=== PATIENT | male | born 1965 | race Caucasian/White ===

== ENCOUNTER 2019-10-13 16:21 | Inpatient (IN) | payer SELFPAY ==
[2019-10-13] VITALS (8 sets, daily range): BP systolic 133–186; BP diastolic 76–100
[~2019-10-13] VITALS: Ht 175 cm; Wt 48.7 kg
[2019-10-13] MEDS ORDERED: ASPIRIN 81 MG CHEW (CHILDREN'S ASA) PO ONE (16:30)
[2019-10-13 16:52] LABS: BASOPHILS % (AUTO) 0 % (0-10); EOSINOPHILS % (AUTO) 0 % (0-10); HEMATOCRIT 46 % (40-54); LYMPHOCYTES # (AUTO) 2.2 X 10^3 (1.0-4.0); LYMPHOCYTES % (AUTO) 23 % (12-44); MEAN CORPUSCULAR HEMOGLOBIN 34 PG (25-34); MEAN CORPUSCULAR HGB CONC 37 G/DL (32-36); MEAN CORPUSCULAR VOLUME 93 FL (80-99); MEAN PLATELET VOLUME 9.4 FL (7.4-10.4); MONOCYTES # (AUTO) 1.4 X 10^3 (0.0-1.0); MONOCYTES % (AUTO) 15 % (0-12); NEUTROPHILS # (AUTO) 6.1 X 10^3 (1.8-7.8); NEUTROPHILS % (AUTO) 63 % (42-75); PLATELET COUNT 355 10^3/uL (130-400); RED CELL DISTRIBUTION WIDTH 13.1 % (10.0-14.5); WHITE BLOOD COUNT 9.7 10^3/uL (4.3-11.0)
[2019-10-13] MEDS ORDERED: NS IV 1000 ML 1,000 ML IV SCH (17:00)
[2019-10-13] MEDS ORDERED: cloNIDine 0.2 MG (CATAPRES) TAB PO ONE (17:00)
[2019-10-13 17:03] LABS: PROTHROMBIN TIME PATIENT 13.9 SEC (12.2-14.7)
[2019-10-13 17:06] LABS: CHLORIDE 102 MMOL/L (98-107); POTASSIUM 3.7 MMOL/L (3.6-5.0); SODIUM 136 MMOL/L (135-145)
[2019-10-13 17:08] LABS: CALCIUM 10.2 MG/DL (8.5-10.1)
[2019-10-13 17:09] LABS: GLUCOSE 135 MG/DL (70-105)
[2019-10-13 17:10] LABS: BILIRUBIN,TOTAL 0.6 MG/DL (0.1-1.0); CARBON DIOXIDE 22 MMOL/L (21-32)
[2019-10-13 17:12] LABS: ALKALINE PHOSPHATASE 54 U/L (40-136); CREATININE SERUM 0.91 MG/DL (0.60-1.30); GFR ESTIMATED > 60
[2019-10-13 17:13] LABS: BUN/CREATININE RATIO 8; FIBRIN DEGRADATION PRODUCTS 0.4 UG/ML (0.00-0.49)
[2019-10-13 17:15] LABS: ALANINE AMINOTRANSFERASE 19 U/L (0-55); MAGNESIUM 2.2 MG/DL (1.6-2.4)
--- NOTE | 2019-10-13 17:15 | NUR ---
REPORT GIVEN TO CHRIS.
--- NOTE | 2019-10-13 17:43 | Diagnostic Imaging Report ---
EXAMINATION: Chest 1 view. HISTORY: Chest pain. COMPARISON: None available. FINDINGS: Lungs are hyperinflated. There is scarring in the apices. Heart size is normal. No pleural effusion or pneumothorax. No edema or pneumonia. IMPRESSION: Hyperinflated lungs with scarring in the apices but no edema or pneumonia. Dictated by: Dictated on workstation # [id number]
[2019-10-13 18:06] LABS: BILIRUBIN,URINE NEGATIVE (NEGATIVE); CLARITY,URINE CLEAR; COLOR,URINE YELLOW; GLUCOSE, URINE (UA) NEGATIVE (NEGATIVE); KETONES,URINE NEGATIVE (NEGATIVE); LEUKOCYTE ESTERASE ,URINE NEGATIVE (NEGATIVE); NITRITE,URINE NEGATIVE (NEGATIVE); PH,URINE 6.5 (5-9); PROTEIN,URINE NEGATIVE (NEGATIVE)
[2019-10-13 18:12] LABS: BACTERIA,URINE TRACE /HPF; RBC,URINE RARE /HPF; SQUAMOUS EPITHELIAL CELL,UR RARE /HPF
[2019-10-13] MEDS ORDERED: HYDROCHLOROTHIAZIDE 12.5 MG (HCTZ) CAP PO ONE (18:30)
[2019-10-13] MEDS ORDERED: lisINopril 10 MG (PRINIVIL) TABLET PO ONE (18:30)
--- NOTE | 2019-10-13 18:38 | ED Chest Pain ---
General Chief Complaint: Chest Pain Stated Complaint: SOA,CP Nursing Triage Note: ARRIVED VIA AMB TO [facility] WITH COMPLAINTS OF SOA SINCE YESTERDAY ALONG WITH FEVER. Nursing Sepsis Screen: Possible Severe Sepsis Risk Source: patient Exam Limitations: no limitations History of Present Illness Date Seen by Provider: Oct 13, 2019 Time Seen by Provider: 16:27 Initial Comments 54-year-old male who presents to the emergency room with complaints of shortness of air and chest pain that started yesterday. He describes his chest pain as a mild ache that comes from time to time. He reports possible fever because he has hot and cold at times. He reports that he has had exposure to COVID 2 weeks ago. He denies taking any medications for his symptoms. He is alert and oriented on arrival to the emergency room. He denies any nausea, dizziness, lightheadedness, vomiting, diarrhea. Timing/Duration: 1-2 days Severity/Quality: mild Location: substernal Radiation: no radiation Prior CP/Workup: no prior chest pain ASA po TOWBOAT CAPTAIN: No NTG SL TOWBOAT CAPTAIN: No Associated Symptoms: shortness of breath Allergies and Home Medications Allergies Coded Allergies: menthol (Verified Allergy, Unknown, 10/13/19) Patient Home Medication List Home Medication List Reviewed: Yes Review of Systems Review of Systems Constitutional: see HPI, chills, fever Respiratory: See HPI, Shortness of Air Cardiovascular: See HPI, Chest Pain All Other Systems Reviewed Negative Unless Noted: Yes Past Tln[place]ah-Nrmjjg-Zwbqgf Hx Past Med/Social Hx: Reviewed Nursing Past Med/Soc Hx Patient Social History Recent Foreign Travel: No Contact w/Someone Who Travel: No Recent Infectious Disease Expo: No Recent Hopitalizations: No Physical Abuse: No Sexual Abuse: No Mistreated: No Fear: No Seasonal Allergies Seasonal Allergies: No Past Medical History Surgeries: Yes (SPLEENECTOMY) Respiratory: Yes COPD Cardiac: No Neurological: No Genitourinary: No Gastrointestinal: No Musculoskeletal: No Endocrine: No Cancer: No Psychosocial: No Blood Disorders: Yes Family Medical History Reviewed Nursing Family Hx Physical Exam Vital Signs Vital Signs - First Documented 10/13/19 16:25 Temp 36.6 Pulse 120 Resp 16 B/P (MAP) 207/131 (156) Pulse Ox 97 O2 Delivery Room Air Capillary Refill : Less Than 3 Seconds Height, Weight, BMI Height: '" Weight: lbs. oz. kg; 17.00 BMI Method: General Appearance: No Apparent Distress, WD/WN Respiratory: Chest Non Tender, Lungs Clear, Normal Breath Sounds, No Accessory Muscle Use, No Respiratory Distress Cardiovascular: No Edema, No Gallop, No JVD, No Murmur, Normal Peripheral Pulses, Tachycardia Gastrointestinal: Normal Bowel Sounds, No Organomegaly, No Pulsatile Mass, Non Tender Extremity: Normal Capillary Refill Neurologic/Psychiatric: Alert, Oriented x3, Normal Mood/Affect Skin: Normal Color, Warm/Dry Focused Exam Lactate Level 10/13/19 16:50: Lactic Acid Level 1.32 Lactic Acid Level Laboratory Tests Test 10/13/19 16:50 Lactic Acid Level 1.32 MMOL/L (0.50-2.00) Progress/Results/Core Measures Results/Orders Lab Results Laboratory Tests Test 10/13/19 16:35 10/13/19 16:50 10/13/19 17:40 10/13/19 18:30 Range/Units White Blood Count 9.7 4.3-11.0 10^3/uL Red Blood Count 4.95 4.35-5.85 10^6/uL Hemoglobin 17.0 13.3-17.7 G/DL Hematocrit 46 40-54 % Mean Corpuscular Volume 93 80-99 FL Mean Corpuscular Hemoglobin 34 25-34 PG Mean Corpuscular Hemoglobin Concent 37 H 32-36 G/DL Red Cell Distribution Width 13.1 10.0-14.5 % Platelet Count 355 130-400 10^3/uL Mean Platelet Volume 9.4 7.4-10.4 FL Neutrophils (%) (Auto) 63 42-75 % Lymphocytes (%) (Auto) 23 12-44 % Monocytes (%) (Auto) 15 H 0-12 % Eosinophils (%) (Auto) 0 0-10 % Basophils (%) (Auto) 0 0-10 % Neutrophils # (Auto) 6.1 1.8-7.8 X 10^3 Lymphocytes # (Auto) 2.2 1.0-4.0 X 10^3 Monocytes # (Auto) 1.4 H 0.0-1.0 X 10^3 Eosinophils # (Auto) 0.0 0.0-0.3 10^3/uL Basophils # (Auto) 0.0 0.0-0.1 10^3/uL Prothrombin Time 13.9 12.2-14.7 SEC INR Comment 1.0 0.8-1.4 Activated Partial Thromboplast Time 33 24-35 SEC Fibrinogen 421 221-496 MG/DL D-Dimer 0.40 0.00-0.49 UG/ML Sodium Level 136 135-145 MMOL/L Potassium Level 3.7 3.6-5.0 MMOL/L Chloride Level 102 98-107 MMOL/L Carbon Dioxide Level 22 21-32 MMOL/L Anion Gap 12 5-14 MMOL/L Blood Urea Nitrogen 7 7-18 MG/DL Creatinine 0.91 0.60-1.30 MG/DL Estimat Glomerular Filtration Rate > 60 BUN/Creatinine Ratio 8 Glucose Level 135 H 70-105 MG/DL Calcium Level 10.2 H 8.5-10.1 MG/DL Corrected Calcium 8.5-10.1 MG/DL Magnesium Level 2.2 1.6-2.4 MG/DL Total Bilirubin 0.6 0.1-1.0 MG/DL Aspartate Amino Transf (AST/SGOT) 17 5-34 U/L Alanine Aminotransferase (ALT/SGPT) 19 0-55 U/L Alkaline Phosphatase 54 40-136 U/L Lactate Dehydrogenase 100 L 125-220 U/L Myoglobin 27.7 10.0-92.0 NG/ML Troponin I < 0.028 0.327 *H <0.028 NG/ML C-Reactive Protein High Sensitivity 0.10 0.00-0.50 MG/DL Total Protein 8.0 6.4-8.2 GM/DL Albumin 5.0 H 3.2-4.5 GM/DL Lactic Acid Level 1.32 0.50-2.00 MMOL/L Urine Color YELLOW Urine Clarity CLEAR Urine pH 6.5 5-9 Urine Specific Henderson <=1.005 1.016-1.022 Urine Protein NEGATIVE NEGATIVE Urine Glucose (UA) NEGATIVE NEGATIVE Urine Ketones NEGATIVE NEGATIVE Urine Nitrite NEGATIVE NEGATIVE Urine Bilirubin NEGATIVE NEGATIVE Urine Urobilinogen 0.2 < = 1.0 MG/DL Urine Leukocyte Esterase NEGATIVE NEGATIVE Urine RBC (Auto) 1+ H NEGATIVE Urine RBC RARE /HPF Urine WBC NONE /HPF Urine Squamous Epithelial Cells RARE /HPF Urine Crystals NONE /LPF Urine Bacteria TRACE /HPF Urine Casts NONE /LPF Urine Mucus NEGATIVE /LPF Urine Culture Indicated NO Test 10/13/19 19:30 Range/Units Troponin I 0.833 *H <0.028 NG/ML My Orders Orders - SCARLET SAUL Cbc With Automated Diff (10/13/19 16:27) Magnesium (10/13/19 16:) Chest 1 View, Ap/Pa Only (10/13/19 16:27) Ekg Tracing (10/13/19 16:27) Comprehensive Metabolic Panel (10/13/19 16:) Myoglobin Serum (10/13/19 16:) Protime With Inr (10/13/19 16:27) Partial Thromboplastin Time (10/13/19 16:27) O2 (10/13/19 16:27) Monitor-Rhythm Ecg Trace Only (10/13/19 16:) Lipid Panel (10/14/19 06:00) Ed Iv/Invasive Line Start (10/13/19 16:27) Blood Culture (10/13/19 16:27) Sputum Culture (10/13/19 16:27) Urinalysis (10/13/19 16:) Urine Culture (10/13/19 16:27) Vital Signs Adult Sepsis Patie Q15M (10/13/19 16:27) Remove Rings In Anticipation O (10/13/19 16:27) Lactic Acid Analyzer (10/13/19 16:27) Coronavirus Sars-Cov-2 So 2018 (10/13/19 16:27) Fibrin Degradation Products (10/13/19 16:27) Aspirin Chewable Tablet (Baby Aspirin Ch (10/13/19 16:30) Vital Signs: Every 4 Hours (Or (10/13/19 16:33) Ferritin (10/13/19 16:33) Fibrinogen (10/13/19 16:33) Ns Iv 1000 Ml (Sodium Chloride 0.9%) (10/13/19 17:00) Clonidine Tablet (Catapres Tablet) (10/13/19 17:00) Hs C Reactive Protein (10/13/19 16:35) LDH (10/13/19 16:35) Troponin I (10/13/19 16:35) Troponin I (10/13/19 18:22) Lisinopril Tablet (Zestril Tablet) (10/13/19 18:30) Hydrochlorothiazide Cap/Tablet (Hctz Cap (10/13/19 18:30) Ekg Tracing (10/13/19 19:22) Troponin I (10/13/19 19:25) Heparin Drip 68072 Unit/500ml (Heparin (10/13/19 20:35) Heparin (Bolus Per Protocol) (Heparin (B (10/13/19 20:35) Metoprolol Succinate (Xl) Tab (Toprol Xl (10/14/19 09:00) Medications Given in ED Current Medications Medications Dose Ordered Sig/Monica Route Start Time Stop Time Status Last Admin Dose Admin Aspirin 324 mg ONCE ONCE PO 10/13/19 16:30 10/13/19 16:31 DC 10/13/19 17:05 324 MG Clonidine HCl 0.2 mg ONCE ONCE PO 10/13/19 17:00 10/13/19 17:01 DC 10/13/19 17:27 0.2 MG Heparin Sodium (Porcine) HEPARIN BOLUS ACS PROTOC... 203 ONCE IV 10/13/19 20:35 10/13/19 20:37 DC 10/13/19 20:54 3,000 UNIT Heparin Sodium/ Dextrose 500 ml @ 0 mls/hr Q0M ONCE IV 10/13/19 20:35 10/13/19 20:37 DC 10/13/19 21:05 12 MLS/HR Hydrochlorothiazide 12.5 mg ONCE ONCE PO 10/13/19 18:30 10/13/19 18:38 DC 10/13/19 19:07 12.5 MG Lisinopril 10 mg ONCE ONCE PO 10/13/19 18:30 10/13/19 18:38 DC 10/13/19 19:01 10 MG Vital Signs/I&O 10/13/19 10/13/19 10/13/19 16:25 18:08 20:18 Temp 36.6 Pulse 120 80 78 Resp 16 16 16 B/P (MAP) 207/131 (156) 186/100 (128) 180/100 (126) Pulse Ox 97 99 97 O2 Delivery Room Air Blood Pressure Mean: 128 Progress Progress Note : Time: 19:19 Progress Note Lab reports critical troponin at this time. Nursing staff is concerned that the labs that out to long. We will repeat troponin to verify elevation. Repeat EKG was repeated and showed sinus rhythm with a heart rate of 65. No ST elevation or depression noted. Patient remains pain-free at this time. Initial ECG Impression Date: Oct 13, 2019 Initial ECG Impression Time: 16:28 Initial ECG Rate: 104 Initial ECG Rhythm: S.Tach Initial ECG Intervals: Normal Initial ECG Impression: Normal Initial ECG Comparisson: No Previous ECG Available Departure Communication (Admissions) Time/Spoke to Admitting Phy: 20:[address] Westbrook he agrees with plans for admission. Time/Spoke to Consulting Phy: 20:21 Patient's troponin repeat was elevated. Discussed case with Dr. Shipman at this time and he agrees except the patient to his services. He recommends Toprol XL 25 mg. As he is protocol for heparin. 325 mg of aspirin daily. Impression Primary Impression: NSTEMI (non-ST elevated myocardial infarction) Additional Impression: Essential hypertension Disposition: ADMITTED INPATIENT Condition: Stable/Unchanged Admissions Decision to Admit Reason: Admit from ER (General) Decision to Admit/Date: Oct 13, 2019 Time/Decision to Admit Time: 21:05 Departure-Patient Inst. Add. Discharge Instructions: Go to the pharmacy and pickling operator your prescriptions tomorrow. Call first thing tomorrow morning to schedule an appointment with a primary care provider at [facility]. Take medications as directed. Drink plenty of fluids to stay hydrated. You may notice you are having more urine output due to the medication to take your medication in the morning so that she will not up urinating all night. Return back to the emergency room with worsening chest pain, shortness of breath, or any other concerns as needed. You do need to remain isolated until your COVID test is back. All discharge instructions reviewed with patient and/or family. Voiced understanding. ECG Impression ECG Initial ECG Impression Date: Oct 13, 2019 Initial ECG Impression Time: 19:18 Initial ECG Rate: 65 Initial ECG Rhythm: Normal Sinus Initial ECG Intervals: Normal Initial ECG Comparisson: Changed (from previous EKG at 1628.) SCARLET SAUL Oct 13, 2019 18:38
[2019-10-13] MEDS ORDERED: LISI1TAB29 PO (18:42)
[2019-10-13] MEDS ORDERED: HEParin DRIP 25000 UNIT/500ML 500 ML IV ONE (20:35)
[2019-10-13] MEDS ORDERED: HEParin 1000 UNIT/ML (10ML VIAL) FOR BOLUS IV ONE (20:35)
--- OUTSIDE RECORDS SUMMARY | 2019-10-13 20:59 | XMS REPORT | Continuity of Care Document ---
Demographics Preferred Language Unknown Marital Status Unknown [employer]ology Affiliation Unknown Race Unknown Ethnic Group Unknown Author Organization Unknown Address Unknown Phone Unavailable Allergies There is no data. Medications There is no data. Problems There is no data. Procedures There is no data. Results Test Result Range Complete blood count (CBC) with automate d white blood cell (WBC) differential - 10/13/19 16:35 Blood leukocytes automated count (number/volume) 9.7 10*3/uL 4.3-11.0 Blood erythrocytes automated count (number/volume) 4.95 10*6/uL 4.35-5.85 Venous blood hemoglobin measurement (mass/volume) 17.0 g/dL 13.3-17.7 Blood hematocrit (volume fraction) 46 % 40-54 Automated erythrocyte mean corpuscular volume 93 [ foz_us] 80-99 Automated erythrocyte mean corpuscular h emoglobin (mass per erythrocyte) 34 pg 25-34 Automated erythrocyte mean corpuscular h emoglobin concentration measurement (mass/volume) 37 g/dL 32-36 Automated erythrocyte distribution width ratio 13. 1 % 10.0- 14.5 Automated blood platelet count (count/volume) 355 10*3/uL 130-400 Automated blood platelet mean volume measurement 9.4 [foz_us] 7.4-10.4 Automated blood neutrophils/100 leukocytes 63 % 42-75 Automated blood lymphocytes/100 leukocytes 23 % 12-44 Blood monocytes/100 leukocytes 15 % 0-12 Automated blood eosinophils/100 leukocytes 0 % 0-10 Automated blood basophils/100 leukocytes 0 % 0-10 Blood neutrophils automated count (number/volume) 6.1 10*3 1.8-7.8 Blood lymphocytes automated count (number/volume) 2.2 10*3 1.0-4.0 Blood monocytes automated count (number/volume) 1. 4 10*3 0.0-1.0 Automated eosinophil count 0.0 10*3/uL 0 .0-0.3 Automated blood basophil count (count/volume) 0.0 10*3/uL 0.0-0.1 PT panel in platelet poor plasma by coag ulation assay - 10/13/19 16:35 Prothrombin time (PT) in platelet poor plasma by coagu lation assay 13.9 s 12.2-14.7 INR in platelet poor plasma or blood by coagulation as say 1.0 0.8-1.4 Activated partial thromboplastin time (a PTT) in platelet poor plasma bycoagulation assay - 10/13/19 16:35 Activated partial thromboplastin time (a PTT) in platelet poor plasma bycoagulation assay 33 s 24-35 Comprehensive metabolic panel - 10/13/19 16:35 Serum or plasma sodium measurement (moles/volume) 136 mmol/L 135-145 Serum or plasma potassium measurement (moles/volume) 3.7 mmol/L 3.6-5.0 Serum or plasma chloride measurement (moles/volume) 102 mmol/L 98-107 Carbon dioxide 22 mmol/L 21-32 Serum or plasma anion gap determination (moles/volume) 12 mmol/L 5-14 Serum or plasma urea nitrogen measurement (mass/volume ) 7 mg/dL 7-18 Serum or plasma creatinine measurement (mass/volume) 0.91 mg/dL 0.60-1.30 Serum or plasma urea nitrogen/creatinine mass ratio 8 NRG Serum or plasma creatinine measurement w ith calculation of estimated glomerular filtration rate > NRG Serum or plasma glucose measurement (mass/volume) 135 mg/dL 70-105 Serum or plasma calcium measurement (mass/volume) 10.2 mg/dL 8.5-10.1 Serum or plasma total bilirubin measurement (mass/volu me) 0.6 mg/dL 0.1-1.0 Serum or plasma alkaline phosphatase riya surement (enzymatic activity/volume) 54 U/L 40-136 Serum or plasma aspartate aminotransfera se measurement (enzymatic activity/volume) 17 U/L 5-34 Serum or plasma alanine aminotransferase measurement (enzymatic activity/volume) 19 U/L 0-55 Serum or plasma protein measurement (mass/volume) 8.0 g/dL 6.4-8.2 Serum or plasma albumin measurement (mass/volume) 5.0 g/dL 3.2-4.5 Magnesium - 10/13/19 16:35 Magnesium 2.2 mg/dL 1.6-2.4 Serum ragweed IgE antibody assay - 10/12 16:35 Serum ragweed IgE antibody assay 100 U/L 125-220 Serum or plasma troponin i.cardiac measu rement (mass/volume) - 10/13/19 16:35 Serum or plasma troponin i.cardiac measurement (mass/v olume) < ng/mL <0.028 Myoglobin, serum - 10/13/19 16:35 Myoglobin, serum 27.7 ng/mL 10.0-92.0 Serum or plasma C reactive protein measu rement (mass/volume) - 10/13/19 16:35 Serum or plasma C reactive protein measurement (mass/v olume) 0.10 mg/dL 0.00-0.50 Fibrinogen measurement in platelet poor plasma by coagulation assay (mass/volume) - 10/13/19 16:35 Fibrinogen measurement in platelet poor plasma by coagulation assay (mass/volume) 421 mg/dL 221-496 Fibrin D-dimer FEU measurement in platel et poor plasma (mass/volume) - 10/13/19 16:35 Fibrin D-dimer FEU measurement in platelet poor plasma (mass/volume) 0.40 ug/mL 0.00-0.49 Blood lactic acid measurement (moles/vol ume) - 10/13/19 16:50 Blood lactic acid measurement (moles/volume) 1.32 mmol/L 0.50-2.00 Complete urinalysis with reflex to cultu re - 10/13/19 17:40 Urine color determination YELLOW NRG Urine clarity determination CLEAR NR G Urine pH measurement by test strip 6.5 5-9 Specific gravity of urine by test strip <= 1.016-1.022 Urine protein assay by test strip, semi-quantitative NEGATIVE NEGATIVE Urine glucose detection by automated test strip NE GATIVE NEGATIVE Erythrocytes detection in urine sediment by light micr oscopy 1+ NEGATIVE Urine ketones detection by automated test strip NE GATIVE NEGATIVE Urine nitrite detection by test strip NEGATIVE NEGATIVE Urine total bilirubin detection by test strip NEGA TIVE NEGATIVE Urine urobilinogen measurement by automated test strip (mass/volume) 0.2 mg/dL < = 1.0 Urine leukocyte esterase detection by dipstick NEG ATIVE NEGATIVE Automated urine sediment erythrocyte cou nt by microscopy (number/high power field) RARE NRG Automated urine sediment leukocyte count by microscopy (number/high power field) NONE NRG Bacteria detection in urine sediment by light microsco py TRACE NRG Squamous epithelial cells detection in u rine sediment by light microscopy RARE NRG Crystals detection in urine sediment by light microsco py NONE NRG Casts detection in urine sediment by light microscopy NONE NRG Mucus detection in urine sediment by light microscopy NEGATIVE NRG Complete urinalysis with reflex to culture NO NRG Serum or plasma troponin i.cardiac measu rement (mass/volume) - 10/13/19 18:30 Serum or plasma troponin i.cardiac measurement (mass/v olume) 0.327 ng/mL <0.028 Serum or plasma troponin i.cardiac measu rement (mass/volume) - 10/13/19 19:30 Serum or plasma troponin i.cardiac measurement (mass/v olume) 0.833 ng/mL <0.028 Encounters ACCT No. Visit Date/Time Discharge Status Pt. Type Provider Facility Loc./Unit Complaint [id number] 10/13/2019 16:59:00 Document Registration
--- NOTE | 2019-10-13 21:30 | NUR ---
RECEIVED REPORT FROM NATA NOVAK.
--- NOTE | 2019-10-13 21:40 | NUR ---
report given to Lazara PRICE by Carlos VINCENT
--- NOTE | 2019-10-13 21:53 | NUR ---
alexia rn to covid unit to retrive patient for admission to room 509.
--- NOTE | 2019-10-13 21:54 | NUR ---
MIGUEL GONG admitted to room 509-1, with an admitting diagnosis of NSTEMI, HYPERTENSION, PUI, on 10/13/19 from ER COVID UNIT via WHEELCHAIR, accompanied by THIS RN AND WANG DAVIDSON. MIGUEL GONG introduced to surroundings, call light, bed controls, phone, TV, temperature control, lights, meal times, smoking policy, visitor policy, side rail policy, bathrooms and showers. Patient Rights given to patient in the handbook. MIGUEL GONG verbalizes understanding that [facility] is not responsible for the loss or damage to any personal effects or valuables that are kept in the patients possession during their hospitalization.
[2019-10-13] MEDS ORDERED: morphine INJ 4 MG/ML 1 ML (VIAL/SYRINGE) IV PRN (22:00)
[2019-10-13] MEDS ORDERED: ONDANSETRON 4 MG/2 ML (SDV) Z0FRAN IV PRN (22:00)
[2019-10-13] MEDS ORDERED: NITROGLYCERIN 0.4 MG SL TABS BTL 25'S SL PRN (22:00)
--- OUTSIDE RECORDS SUMMARY | 2019-10-13 22:50 | XMS REPORT | Continuity of Care Document ---
Author Organization Unknown Address Unknown Phone Unavailable Allergies Active Description Code Type Severity Reaction Onset Reported/Identified Relationship to Patient Clinical Status Yes menthol [id number] Drug Allergy Unknown N/A 10/13/2019 Medications There is no data. Problems There [...] Status Pt. Type Provider Facility Loc./Unit Complaint [id number] 10/13/2019 21:05:[address] Inpatient RAMAKRISHNA OSWALD, IMANI Bustamante [facility] NSTEMI
[2019-10-14 03:14] VITALS: BP 119/74
[2019-10-14 03:32] LABS: BASOPHILS % (AUTO) 0 % (0-10); EOSINOPHILS % (AUTO) 0 % (0-10); HEMATOCRIT 42 % (40-54); HEMOGLOBIN 15.2 G/DL (13.3-17.7); LYMPHOCYTES # (AUTO) 3.5 X 10^3 (1.0-4.0); LYMPHOCYTES % (AUTO) 33 % (12-44); MEAN CORPUSCULAR HEMOGLOBIN 34 PG (25-34); MEAN CORPUSCULAR HGB CONC 36 G/DL (32-36); MEAN CORPUSCULAR VOLUME 94 FL (80-99); MEAN PLATELET VOLUME 9.3 FL (7.4-10.4); MONOCYTES # (AUTO) 1.8 X 10^3 (0.0-1.0); MONOCYTES % (AUTO) 17 % (0-12); NEUTROPHILS # (AUTO) 5.3 X 10^3 (1.8-7.8); NEUTROPHILS % (AUTO) 50 % (42-75); PLATELET COUNT 326 10^3/uL (130-400); WHITE BLOOD COUNT 10.6 10^3/uL (4.3-11.0)
[2019-10-14 03:41] LABS: ALBUMIN 4.3 GM/DL (3.2-4.5); CHLORIDE 103 MMOL/L (98-107); POTASSIUM 3.5 MMOL/L (3.6-5.0); SODIUM 138 MMOL/L (135-145)
[2019-10-14 03:42] LABS: CALCIUM 9.7 MG/DL (8.5-10.1)
[2019-10-14 03:43] LABS: GLUCOSE 85 MG/DL (70-105); TOTAL PROTEIN 6.7 GM/DL (6.4-8.2); TRIGLYCERIDES 63 MG/DL (<150); VLDL CHOLESTEROL 13 MG/DL (5-40)
[2019-10-14 03:44] LABS: CARBON DIOXIDE 23 MMOL/L (21-32)
[2019-10-14 03:45] LABS: BILIRUBIN,TOTAL 0.7 MG/DL (0.1-1.0)
[2019-10-14 03:47] LABS: ALKALINE PHOSPHATASE 48 U/L (40-136); CREATININE SERUM 0.82 MG/DL (0.60-1.30); GFR ESTIMATED > 60
[2019-10-14 03:48] LABS: BUN/CREATININE RATIO 15; CHOLESTEROL 129 MG/DL (< 200)
[2019-10-14 03:49] LABS: HDL CHOLESTEROL 35 MG/DL (40-60)
[2019-10-14 03:50] LABS: ALANINE AMINOTRANSFERASE 16 U/L (0-55)
[2019-10-14] MEDS ORDERED: HEParin DRIP 25000 UNIT/500ML 500 ML IV SCH (04:21)
[2019-10-14] MEDS ORDERED: HEParin 1000 UNIT/ML (10ML VIAL) FOR BOLUS IV PRN (04:30)
[2019-10-14 08:00] VITALS: BP 19/62
--- NOTE | 2019-10-14 08:48 | Consultation-Cardiology ---
HPI-Cardiology Cardiology Consultation Date of Consultation 10/14/19 Date of Admission Time Seen by Provider: 08:43 Indication: non-ST elevation myocardial infarction HPI 54 years old gentleman with no known past history, he is an active smoker, drinks alcohol with family history of atherosclerosis. Was exposed to COVID patient and has been having fever for about a week, has been having generalized fatigue and shortness of breath, denied any chest pain, no palpitation. No syncope. Workup in the hospital included an EKG which did not show significant abnormality, had elevation in troponin level. Was severely hypertensive that h as settled down. Home Medications & Allergies Allergies: Coded Allergies: menthol (Verified Allergy, Unknown, 10/13/19) Home Medication List Reviewed: Yes FVB-[id number]-[id number] Hx Patient Social History Employed/Student: self-employed Smoking Status: Current Everyday Smoker Recent Foreign Travel: No Recent Infectious Disease Expo: Yes Recent Hopitalizations: No Past Medical History No known past history Family Medical History Family History: Diabetes mellitus 19 FATHER FH: brain cancer G8 SISTER ( 2014) Hypertension 19 MOTHER Review of Systems-General Review of Systems Constitutional: see HPI, chills, fever, malaise EENTM: see HPI, no symptoms reported Respiratory: see HPI; No cough; dyspnea on exertion; No hemoptysis, No orthopnea, No phlegm, No short of breath, No stridor, No wheezing, No other Cardiovascular: see HPI; No chest pain, No edema, No Hx of Intervention, No palpitations, No syncope, No vascular heart diseas, No other Gastrointestinal: no symptoms reported, see HPI Genitourinary: no symptoms reported, see HPI Musculoskeletal: no symptoms reported, see HPI Skin: no symptoms reported, see HPI Psychiatric/Neurological: No Symptoms Reported, See HPI All Other Systems Reviewed Negative Unless Noted: Yes Reviewed Test Results Reviewed Test Results Lab Laboratory Tests Test 10/13/19 16:35 10/13/19 16:50 10/13/19 17:40 10/13/19 18:30 Range/Units White Blood Count 9.7 4.3-11.0 10^3/uL Red Blood Count 4.95 4.35-5.85 10^6/uL Hemoglobin 17.0 13.3-17.7 G/DL Hematocrit 46 40-54 % Mean Corpuscular Volume 93 80-99 FL Mean Corpuscular Hemoglobin 34 25-34 PG Mean Corpuscular Hemoglobin Concent 37 H 32-36 G/DL Red Cell Distribution Width 13.1 10.0-14.5 % Platelet Count 355 130-400 10^3/uL Mean Platelet Volume 9.4 7.4-10.4 FL Neutrophils (%) (Auto) 63 42-75 % Lymphocytes (%) (Auto) 23 12-44 % Monocytes (%) (Auto) 15 H 0-12 % Eosinophils (%) (Auto) 0 0-10 % Basophils (%) (Auto) 0 0-10 % Neutrophils # (Auto) 6.1 1.8-7.8 X 10^3 Lymphocytes # (Auto) 2.2 1.0-4.0 X 10^3 Monocytes # (Auto) 1.4 H 0.0-1.0 X 10^3 Eosinophils # (Auto) 0.0 0.0-0.3 10^3/uL Basophils # (Auto) 0.0 0.0-0.1 10^3/uL Prothrombin Time 13.9 12.2-14.7 SEC INR Comment 1.0 0.8-1.4 Activated Partial Thromboplast Time 33 24-35 SEC Fibrinogen 421 221-496 MG/DL D-Dimer 0.40 0.00-0.49 UG/ML Sodium Level 136 135-145 MMOL/L Potassium Level 3.7 3.6-5.0 MMOL/L Chloride Level 102 98-107 MMOL/L Carbon Dioxide Level 22 21-32 MMOL/L Anion Gap 12 5-14 MMOL/L Blood Urea Nitrogen 7 7-18 MG/DL Creatinine 0.91 0.60-1.30 MG/DL Estimat Glomerular Filtration Rate > 60 BUN/Creatinine Ratio 8 Glucose Level 135 H 70-105 MG/DL Calcium Level 10.2 H 8.5-10.1 MG/DL Corrected Calcium 8.5-10.1 MG/DL Magnesium Level 2.2 1.6-2.4 MG/DL Total Bilirubin 0.6 0.1-1.0 MG/DL Aspartate Amino Transf (AST/SGOT) 17 5-34 U/L Alanine Aminotransferase (ALT/SGPT) 19 0-55 U/L Alkaline Phosphatase 54 40-136 U/L Lactate Dehydrogenase 100 L 125-220 U/L Myoglobin 27.7 10.0-92.0 NG/ML Troponin I < 0.028 0.327 *H <0.028 NG/ML C-Reactive Protein High Sensitivity 0.10 0.00-0.50 MG/DL Total Protein 8.0 6.4-8.2 GM/DL Albumin 5.0 H 3.2-4.5 GM/DL Lactic Acid Level 1.32 0.50-2.00 MMOL/L Urine Color YELLOW Urine Clarity CLEAR Urine pH 6.5 5-9 Urine Specific [place] <=1.005 1.016-1.022 Urine Protein NEGATIVE NEGATIVE Urine Glucose (UA) NEGATIVE NEGATIVE Urine Ketones NEGATIVE NEGATIVE Urine Nitrite NEGATIVE NEGATIVE Urine Bilirubin NEGATIVE NEGATIVE Urine Urobilinogen 0.2 < = 1.0 MG/DL Urine Leukocyte Esterase NEGATIVE NEGATIVE Urine RBC (Auto) 1+ H NEGATIVE Urine RBC RARE /HPF Urine WBC NONE /HPF Urine Squamous Epithelial Cells RARE /HPF Urine Crystals NONE /LPF Urine Bacteria TRACE /HPF Urine Casts NONE /LPF Urine Mucus NEGATIVE /LPF Urine Culture Indicated NO Test 10/13/19 19:30 10/14/19 03:20 Range/Units Troponin I 0.833 *H 1.448 *H <0.028 NG/ML White Blood Count 10.6 4.3-11.0 10^3/uL Red Blood Count 4.46 4.35-5.85 10^6/uL Hemoglobin 15.2 13.3-17.7 G/DL Hematocrit 42 40-54 % Mean Corpuscular Volume 94 80-99 FL Mean Corpuscular Hemoglobin 34 25-34 PG Mean Corpuscular Hemoglobin Concent 36 32-36 G/DL Red Cell Distribution Width 13.0 10.0-14.5 % Platelet Count 326 130-400 10^3/uL Mean Platelet Volume 9.3 7.4-10.4 FL Neutrophils (%) (Auto) 50 42-75 % Lymphocytes (%) (Auto) 33 12-44 % Monocytes (%) (Auto) 17 H 0-12 % Eosinophils (%) (Auto) 0 0-10 % Basophils (%) (Auto) 0 0-10 % Neutrophils # (Auto) 5.3 1.8-7.8 X 10^3 Lymphocytes # (Auto) 3.5 1.0-4.0 X 10^3 Monocytes # (Auto) 1.8 H 0.0-1.0 X 10^3 Eosinophils # (Auto) 0.0 0.0-0.3 10^3/uL Basophils # (Auto) 0.0 0.0-0.1 10^3/uL Activated Partial Thromboplast Time 42 H 24-35 SEC Sodium Level 138 135-145 MMOL/L Potassium Level 3.5 L 3.6-5.0 MMOL/L Chloride Level 103 98-107 MMOL/L Carbon Dioxide Level 23 21-32 MMOL/L Anion Gap 12 5-14 MMOL/L Blood Urea Nitrogen 12 7-18 MG/DL Creatinine 0.82 0.60-1.30 MG/DL Estimat Glomerular Filtration Rate > 60 BUN/Creatinine Ratio 15 Glucose Level 85 70-105 MG/DL Calcium Level 9.7 8.5-10.1 MG/DL Corrected Calcium 9.5 8.5-10.1 MG/DL Total Bilirubin 0.7 0.1-1.0 MG/DL Aspartate Amino Transf (AST/SGOT) 19 5-34 U/L Alanine Aminotransferase (ALT/SGPT) 16 0-55 U/L Alkaline Phosphatase 48 40-136 U/L Total Protein 6.7 6.4-8.2 GM/DL Albumin 4.3 3.2-4.5 GM/DL Triglycerides Level 63 <150 MG/DL Cholesterol Level 129 < 200 MG/DL LDL Cholesterol Direct 84 1-129 MG/DL VLDL Cholesterol 13 5-40 MG/DL HDL Cholesterol 35 L 40-60 MG/DL Physical Exam Physical Exam Vital Signs Vital Signs - First Documented 10/13/19 16:25 Temp 36.6 Pulse 120 Resp 16 B/P (MAP) 207/131 (156) Pulse Ox 97 O2 Delivery Room Air Capillary Refill : Less Than 3 Seconds Height, Weight, BMI Height: '" Weight: lbs. oz. kg; 15.90 BMI Method: General Appearance: No Apparent Distress, WD/WN Respiratory: Chest Non Tender, Lungs Clear, Normal Breath Sounds, No Accessory Muscle Use, No Respiratory Distress Cardiovascular: No Edema, No Gallop, No JVD, No Murmur, Normal Peripheral Pulses, Tachycardia Gastrointestinal: Normal Bowel Sounds, No Organomegaly, No Pulsatile Mass, Non Tender Extremity: Normal Capillary Refill Neurologic/Psychiatric: Alert, Oriented x3, Normal Mood/Affect Skin: Normal Color, Warm/Dry A/P-Cardiology Admission Diagnosis Fever Type II myocardial infarction Malignant hypertension Tobaccoism Assessment/Plan Fever, unknown source, workup is in progress, COVID pending. Shortness of breath, reporting improvement at this time, managed by primary care team Severe malignant hypertension, better at this time. Continue to monitor blood pressure Mildly elevated troponin level, probably type II myocardial infarction secondary to severe hypertension, patient did not have any chest pain or EKG changes, currently asymptomatic, conservative management is recommended at this time Tobaccoism, educated on smoking cessation Alcoholism, heavy drinking, educated on avoiding alcohol Strong family history of atherosclerosis Clinical Quality Measures AMI/AHF: ASA po Prior to arrival: No DVT/VTE Risk/Contraindication: Risk Factor Score Per Nursin RFS Level Per Nursing on Admit: 4+=Very High DINESH WEEKS MD Oct 14, 2019 8:48 am
[2019-10-14] MEDS ORDERED: ASPIRIN 325 MG (5 GR) TABLET PO SCH (09:00)
[2019-10-14] MEDS ORDERED: LISI10TA2 PO (10:56)
[2019-10-14] MEDS ORDERED: ASPI-999 PO (10:56)
[2019-10-14] MEDS ORDERED: lisINopril 10 MG (PRINIVIL) TABLET PO SCH (11:01)
--- NOTE | 2019-10-14 11:04 | Discharge Summary ---
Discharge Summary Hospital Course Was the Problem List Reviewed?: Yes Problems/Dx: (1) NSTEMI (non-ST elevated myocardial infarction) Status: Acute (2) Essential hypertension Status: Acute (3) Malignant hypertension Status: Acute Hospital Course Date of Admission: Oct 13, 2019 at 21:05 Admission Diagnosis : NSTEMI Family Physician/Provider: Marci,Local Physician Date of Discharge: 10/14/19 Discharge Diagnosis: NSTEMI Hospital Course: Dominic Maharaj is a 54-year-old male with no known past medical history who presented with malignant hypertension and non-ST elevation LA. He was given lisinopril, hydrochlorothiazide, and clonidine on arrival. His blood pressure had been greater than 200/130. His blood pressure improved to 120/70 the following morning. He was continued on lisinopril daily. His course was complicated by NSTEMI. His troponin trended upward. Cardiology was consulted and assisted in his care. It was believed that his troponin elevation was secondary to malignant hypertension. They recommended a stress test in about a month. He was started on daily aspirin. He needs to establish care with a primary care physician. He had apparently been exposed to someone with coronavirus. He was tested for coronavirus and this was pending at the time of discharge. He was instructed to go home in quarantine. The health department should be in touch with him with further recommendations. Labs and Pending Lab Test: Laboratory Tests 10/13/19 16:35: White Blood Count 9.7, Red Blood Count 4.95, Hemoglobin 17.0, Hematocrit 46, Mean Corpuscular Volume 93, Mean Corpuscular Hemoglobin 34, Mean Corpuscular Hemoglobin Concent 37H, Red Cell Distribution Width 13.1, Platelet Count 355, Mean Platelet Volume 9.4, Neutrophils (%) (Auto) 63, Lymphocytes (%) (Auto) 23, Monocytes (%) (Auto) 15H, Eosinophils (%) (Auto) 0, Basophils (%) (Auto) 0, Neutrophils # (Auto) 6.1, Lymphocytes # (Auto) 2.2, Monocytes # (Auto) 1.4H, Eosinophils # (Auto) 0.0, Basophils # (Auto) 0.0, Prothrombin Time 13.9, INR Comment 1.0, Activated Partial Thromboplast Time 33, Fibrinogen 421, D-Dimer 0.40, Sodium Level 136, Potassium Level 3.7, Chloride Level 102, Carbon Dioxide Level 22, Anion Gap 12, Blood Urea Nitrogen 7, Creatinine 0.91, Estimat Glomerular Filtration Rate > 60, BUN/Creatinine Ratio 8, Glucose Level 135H, Calcium Level 10.2H, Corrected Calcium , Magnesium Level 2.2, Ferritin [Pending], Total Bilirubin 0.6, Aspartate Amino Transf (AST/SGOT) 17, Alanine Aminotransferase (ALT/SGPT) 19, Alkaline Phosphatase 54, Lactate Dehydrogenase 100L, Myoglobin 27.7, Troponin I < 0.028, C-Reactive Protein High Sensitivity 0.10, Total Protein 8.0, Albumin 5.0H, Coronavirus (COVID-19)(PCR) [Pending] 10/13/19 16:50: Lactic Acid Level 1.32 10/13/19 17:40: Urine Color YELLOW, Urine Clarity CLEAR, Urine pH 6.5, Urine Specific [place] <=1.005, Urine Protein NEGATIVE, Urine Glucose (UA) NEGATIVE, Urine Ketones NEGATIVE, Urine Nitrite NEGATIVE, Urine Bilirubin NEGATIVE, Urine Urobilinogen 0.2, Urine Leukocyte Esterase NEGATIVE, Urine RBC (Auto) 1+H, Urine RBC RARE, Urine WBC NONE, Urine Squamous Epithelial Cells RARE, Urine Crystals NONE, Urine Bacteria TRACE, Urine Casts NONE, Urine Mucus NEGATIVE, Urine Culture Indicated NO 10/13/19 18:30: Troponin I 0.327*H 10/13/19 19:30: Troponin I 0.833*H 10/14/19 03:20: Troponin I 1.448*H, White Blood Count 10.6, Red Blood Count 4.46, Hemoglobin 15.2, Hematocrit 42, Mean Corpuscular Volume 94, Mean Corpuscular Hemoglobin 34, Mean Corpuscular Hemoglobin Concent 36, Red Cell Distribution Width 13.0, Platelet Count 326, Mean Platelet Volume 9.3, Neutrophils (%) (Auto) 50, Lymphocytes (%) (Auto) 33, Monocytes (%) (Auto) 17H, Eosinophils (%) (Auto) 0, Basophils (%) (Auto) 0, Neutrophils # (Auto) 5.3, Lymphocytes # (Auto) 3.5, Monocytes # (Auto) 1.8H, Eosinophils # (Auto) 0.0, Basophils # (Auto) 0.0, Activated Partial Thromboplast Time 42H, Sodium Level 138, Potassium Level 3.5L, Chloride Level 103, Carbon Dioxide Level 23, Anion Gap 12, Blood Urea Nitrogen 12, Creatinine 0.82, Estimat Glomerular Filtration Rate > 60, BUN/Creatinine Ratio 15, Glucose Level 85, Calcium Level 9.7, Corrected Calcium 9.5, Total Bilirubin 0.7, Aspartate Amino Transf (AST/SGOT) 19, Alanine Aminotransferase (ALT/SGPT) 16, Alkaline Phosphatase 48, Total Protein 6.7, Albumin 4.3, Triglycerides Level 63, Cholesterol Level 129, LDL Cholesterol Direct 84, VLDL Cholesterol 13, HDL Cholesterol 35L Home Meds Active Aspirin 81 Mg Tab.chew 81 Mg PO DAILY 90 Days Lisinopril 10 Mg Tablet 10 Mg PO DAILY 90 Days Assessment/Pt Instructions Take medications as prescribed. He will be required to quarantine when you go home. The health department will be in contact with you. Establish care with a primary care physician. Follow-up with cardiology for a stress test in about a month. Discharge Planning: <30 minutes discharge planning Discharge Instructions Discharge Diet: Low Sodium Diet Activity as Tolerated: Yes Pneumonia Vaccine Order Indica: Yes Discharge Physical Examination Vital Signs Vital Signs Date Time Temp Pulse Resp B/P (MAP) Pulse Ox O2 Delivery O2 Flow Rate FiO2 10/14/19 09:00 96 Room Air 10/14/19 08:00 37.1 50 18 19/62 (48) General Appearance: No Apparent Distress, Thin HEENT: PERRL/EOMI, Pharynx Normal Respiratory: Lungs Clear, No Respiratory Distress Cardiovascular: No Edema, No Murmur, Bradycardia (Regular rhythm) Gastrointestinal: Normal Bowel Sounds, Non Tender, Soft Extremity: Normal Inspection, Non Tender, No Pedal Edema Skin: Normal Color, Warm/Dry Neurologic/Psychiatric: Alert, Oriented x3, No Motor/Sensory Deficits, Normal Mood/Affect Allergies: Coded Allergies: menthol (Verified Allergy, Unknown, 10/13/19) Copy Copies To 1: [facility] [place] Discharge Summary Date of Admission Oct 13, 2019 at 21:05 Date of Discharge Discharge Date: Oct 14, 2019 Discharge Time: 11:02 Admission Diagnosis NSTEMI Consults/Procedures Consulations Cardiology Discharge Diagnosis (1) Malignant hypertension Status: Acute (2) NSTEMI (non-ST elevated myocardial infarction) Status: Acute (3) Essential hypertension Status: Acute Clinical Quality Measures AMI/AHF: ASA po Prior to arrival: No DVT/VTE Risk/Contraindication: Risk Factor Score Per Nursin RFS Level Per Nursing on Admit: 4+=Very High FAY LARES MD Oct 14, 2019 11:03
[2019-10-14 12:00] VITALS: BP 110/60
--- NOTE | 2019-10-14 13:45 | NUR ---
INSTRUCTED PT. TO COME TO ER AND CALL DR. WEEKS'S OFFICE IF CHEST PAIN OCCURES.
[2019-10-14 13:50] VITALS: BP 110/60
--- NOTE | 2019-10-14 13:50 | NUR ---
MIGUEL GONG demonstrates understanding of discharge instructions and accurately returns instructions upon questioning. Copy of Post-Discharge Instructions given to PT. MIGUEL GONG is able to manage continuing needs after discharge. Patients belongings returned to PT. Patient discharged from 509-1 on 09/14/19 at 1350. MIGUEL GONG left floor via W/C, accompanied by STAFF AND FAMILY PER AUTO.
== END 2019-10-14 13:50 | disposition home or self-care (01) | DRG 282 ==
LOC: EDUNIT# 16:21 → ER 16:23 → CSD 21:05
PROVIDERS: ADMIT Internal Medicine; ATTEND Internal Medicine
DX: I10 Essential (primary) hypertension (principal); I21.A1 Myocardial infarction type 2; J44.9 Chronic obstructive pulmonary disease, unspecified; F10.20 Alcohol dependence, uncomplicated; Z20.828 Contact with and (suspected) exposure to other viral communicable diseases; R50.9 Fever, unspecified; R53.83 Other fatigue; R06.02 Shortness of breath; F17.200 Nicotine dependence, unspecified, uncomplicated; Z90.81 Acquired absence of spleen; Z82.49 Family history of ischemic heart disease and other diseases of the circulatory system; Z79.2 Long term (current) use of antibiotics
CPT/HCPCS: 36415; 71045; 80053; 80061; 81000; 82728; 83605; 83615; 83735; 83874; 84484; 85025; 85379; 85384; 85610; 85730; 86141; 87040; 87088; 87635; 93005; 93041; 96361; 96374

== ENCOUNTER → 2019-11-15 | Outpatient (CLI) | payer OTHER ==
[~2019-11-15] MED LIST: ASPI-999 PO; LISI10TA2 PO; LISI1TAB29 PO; REGADENOSON 0.4 MG/5 ML SYR (LEXISCAN) IV ONE
[2019-11-15 09:27] VITALS: BP 159/92
--- NOTE | 2019-11-15 12:56 | Cardiology Stress Test Report ---
Stress Test Report Date of Procedure/Referring: Date of Procedure: Nov 15, 2019 PCP [facility]inesh Shipman [facility]: Coronary artery disease Baseline Heart Rate: 54 Baseline Blood Pressure: Blood Pressure Systolic: 159 Blood Pressure Diastolic: 92 Baseline Vitals Vital Signs Date Time Temp Pulse Resp B/P (MAP) Pulse Ox O2 Delivery O2 Flow Rate FiO2 11/15/19 09:27 48 18 159/92 (114) 99 Room Air Baseline EKG: Baseline EKG: normal sinus rhythm Summary After explaining the procedure to the patient, he signed a consent and then brought to the stress nuclear laboratory. Patient received 0.4 mg Lexiscan for stress test, ECG, heart rate and blood pressure were monitored continuously. Resting and stress dose of radio tracer were injected, imaging was acquired and reviewed in short axis, horizontal long axis and vertical long axis views. TID: 1.08 SSS: 3 SDS: 1 EF: 54 1. Patient tolerated Lexiscan well 2. Baseline nondiagnostic EKG changes persisted during test 3. Diaphragmatic attenuation with decreased uptake involving the mid to apical inferior wall and true apex with subtle reversibility, no significant ischemia or infarction 4. Normal left ventricular size, EF 54 percent DINESH SHIPMAN MD Nov 15, 2019 12:56
== END ==
LOC: CARD 07:46
PROVIDERS: ATTEND Internal Medicine Cardiovascular Disease
DX: I25.10 Atherosclerotic heart disease of native coronary artery without angina pectoris (principal)
CPT/HCPCS: 78452; 93017; A9502

== ENCOUNTER 2020-08-16 08:00 | Day surgery (SDC) | payer OTHER ==
[~2020-08-16] VITALS: Ht 175 cm; Wt 54.0 kg
[2020-08-16] VITALS (10 sets, daily range): BP systolic 119–166; BP diastolic 63–92
[2020-08-16 07:32] LABS: BILIRUBIN,URINE NEGATIVE (NEGATIVE); CLARITY,URINE CLEAR; COLOR,URINE YELLOW; GLUCOSE, URINE (UA) NEGATIVE (NEGATIVE); KETONES,URINE TRACE (NEGATIVE); LEUKOCYTE ESTERASE ,URINE TRACE (NEGATIVE); NITRITE,URINE NEGATIVE (NEGATIVE); PROTEIN,URINE NEGATIVE (NEGATIVE)
[2020-08-16 07:35] LABS: HEMOGLOBIN 15.4 g/dL (13.3-17.7); MEAN PLATELET VOLUME 9.5 fL (9.0-12.2); WHITE BLOOD COUNT 11.3 10^3/uL (4.3-11.0)
[2020-08-16 07:42] LABS: BACTERIA,URINE NEGATIVE /HPF; RBC,URINE 0-2 /HPF; WBC,URINE RARE /HPF
[2020-08-16 07:52] LABS: ALANINE AMINOTRANSFERASE 26 U/L (0-55); ALBUMIN 4.7 GM/DL (3.2-4.5); ALKALINE PHOSPHATASE 54 U/L (40-136); BILIRUBIN,TOTAL 0.4 MG/DL (0.1-1.0); BUN/CREATININE RATIO 12; CALCIUM 9.5 MG/DL (8.5-10.1); CARBON DIOXIDE 24 MMOL/L (21-32); CHLORIDE 103 MMOL/L (98-107); CHOLESTEROL 125 MG/DL (< 200); CREATININE SERUM 0.99 MG/DL (0.60-1.30); GFR ESTIMATED > 60; GLUCOSE 105 MG/DL (70-105); HDL CHOLESTEROL 41 MG/DL (40-60); POTASSIUM 3.5 MMOL/L (3.6-5.0); SODIUM 141 MMOL/L (135-145); TOTAL PROTEIN 7.7 GM/DL (6.4-8.2); TRIGLYCERIDES 90 MG/DL (<150); VLDL CHOLESTEROL 18 MG/DL (5-40)
[2020-08-16 07:54] LABS: PROTHROMBIN TIME PATIENT 13.3 SEC (12.2-14.7)
--- NOTE | 2020-08-16 07:54 | Diagnostic Imaging Report ---
INDICATION: Chest pain, abnormal stress. TECHNIQUE: Single view chest at 7:24 AM. CORRELATION STUDY: 10/13/2019. FINDINGS: The heart size, mediastinal configuration, and pulmonary vascularity are within normal limits. Hyperinflated lung sands. No infiltrate. Mild biapical pleural thickening/scarring. IMPRESSION: Hyperinflated lung sands with biapical pleural thickening/scarring. Dictated by: Dictated on workstation # [id number]
[~2020-08-16 08:00] MED LIST changes: +ATOR10TA66 PO; +FAMO20TA3 PO; +HEParin (CATH LAB) 2,000 ML IV ONE; +LIDOCAINE 1% INJ 20 ML 20 ML VIAL ONE; -LISI10TA2 PO; +LISI10TA25 PO; +LISI20TA26 PO; +METO-333 PO; +MIDAZOLAM 5 MG/5 ML (VERSED) VIAL ONE; +NS IV 1000 ML 1,000 ML IV SCH; +NS IV 1000 ML 1,000 ML ONE; -REGADENOSON 0.4 MG/5 ML SYR (LEXISCAN) IV ONE; +fentaNYL INJ 100 MCG/2 ML AMP ONE
--- NOTE | 2020-08-16 08:13 | Conscious Sedation/ASA ---
Conscious Sedation Pre-Proced Time 08:13 ASA Score 3 For ASA 3 and 4: Consider anesthesia and medical clearance. Also, for patients with a history of failed moderate sedation consider anesthesia. Airway Lungs Heart ASA score ASA 1: a normal healthy patient ASA 2: a patient with a mild systemic disease (mid diabetes, controlled hypertension, obesity x ASA 3: a patient with a severe systemic disease that limits activity (angina, COPD, prior Myocardial infarction) ASA 4: a patient with an incapacitating disease that is a constant threat to life (CHF, renal failure) ASA 5: a moribund patient not expected to survive 24 hrs. (ruptured aneurysm) ASA 6: a declared brain- patient whose organs are being harvested. For emergent operations, add the letter E after the classification Mallampati Classification Grade 3 Sedation Plan Analgesia, Amnesia, Plan communicated to team members, Discussed options with patient/fam, Discussed risks with patient/fam The patient is an appropriate candidate to undergo the planned procedure, sedation, and anesthesia. The patient immediately re-assessed prior to indication. DINESH WEEKS MD August 16, 2020 08:13
--- NOTE | 2020-08-16 08:43 | Cardiac Cath Report ---
Cardiac Cath Report Physician (s)/Phototypesetting Equipment Monitor (s) Physician DINESH WEEKS MD Pre-Procedure Diagnosis Pre-Procedure Diagnosis: Chest pain, coronary artery disease Post-Procedure Note Procedure Start Date: August 16, 2020 Name of Procedure: Left heart catheterization Abdominal aortogram with bilateral runoff Findings/Procedure Note PROCEDURE NOTE: 55 years old gentleman with history of heavy tobaccoism, had a borderline stress test in October 2019, has been experiencing increasing chest pain with exertion, shortness of breath, symptoms has been progressive, we decided to proceed with cardiac catheterization possible PTCA. After explaining the procedure to the patient, all pros and cons were explained, all questions were answered. The patient signed the consent and then he was placed on the cardiac catheterization laboratory. Groin was prepped SL fashion local anesthesia was used. Sheath placed in the right femoral artery, angiogram to evaluate sheath position showed very small SFA almost smaller than the sheath. Atul left was advanced to the left coronary system and angiogram was done then Atul right was advanced and prolapsed to the left ventricular cavity left ventriculogram was done, pressure was measured, pullback LV to aorta was done then intubated the right coronary artery and angiogram was done then due to the very small SFA and common femoral on the right I decided to do abdominal aortogram with runoff to both legs to evaluate for any significant peripheral arterial disease At the end of the procedure the sheath was removed. Manual pressure was used FINDINGS: Hemodynamics LV 103/8, end-diastolic pressure of 8 Aorta 107/58 mean of 75 ANATOMY: Left Main is slightly aneurysmal with no obstructive disease Left Anterior Descending is very small artery with mild disease nonobstructive disease Left Circumflex has mild disease nonobstructive disease Right Coronory Artery is nondominant artery with no obstructive disease LV Gram was done showing normal left ventricular size, normal contractility, EF is 60% Aorta evaluation done with abdominal aortogram and bilateral runoff down to the trifurcation, abdominal aorta is normal in size, renal arteries are normal, SMA and MAURI are normal, below the bifurcation of the iliac arteries arteries are very small but patent down to the trifurcation CONCLUSION: 1. Small coronary system with nonobstructive disease, mildly aneurysmal left main 2. Normal left ventricular size and systolic function estimate ejection fraction 60% 3. Normal abdominal aorta and runoff to the trifurcation, very small arteries extending from the iliac to the SFA. No significant obstructive disease DISCUSSION AND RECOMMENDATION: Patient has small vessel disease nonobstructive disease, medical therapy is recommended, educated on smoking cessation Anesthesia Type: Conscious Sedation Estimated blood loss (mL): 25 ml Contrast Amount: 56 ml Total Radiation Dose: 78 mGy Post-Procedure Diagnosis Post-operative diagnosis: Chest pain Coronary artery disease Hypertension Tobaccoism DINESH WEEKS MD August 16, 2020 08:43
--- NOTE | 2020-08-16 08:44 | Discharge Inst-Post CATH ---
Discharge Inst-CATH/EP Problems Reviewed?: Yes Post Cardiac Cath/EP D/C Inst Follow Up/Plan Appointment with Dr. Shipman's office in 4 weeks <b>CARDIAC CATH/EP PROCEDURE DISCHARGE INSTRUCTIONS</b> ACTIVITY * Go Home directly and rest. * Limit activity of the leg (or wrist if it was used) for 7 days including aerobics, swimming, jogging, bicycling, etc. * Restrict stair-climbing for 7 days if possible, if not, climb up with your non-cath leg, then bring together on the same step. * Avoid lifting, pushing, pulling or excessive movement of the affected extremity for 7 days. * Customary sexual activity may be resumed after 2 days-use caution not to use a position that strains or causes pain to the affected extremity. * No driving for 24 hours. * NO SMOKING. * Avoid straining for bowel movements for 7 days. * Gentle walking on level ground is allowed. * Returning to work will depend on the type of procedure and the results. Your doctor will discuss this with you. CALL YOUR DOCTOR FOR ANY OF THE FOLLOWING: *If bleeding from the puncture site occurs- Apply gentle pressure to site with clean cloth and call your doctor or EMS. * If a knot or lump forms under the skin, increases in size, or causes pain. * If bruising appears to be worsening or moving further down your leg instead of disappearing. * Temperature above 101 F. CARE OF YOUR GROIN INCISION; * Bruising or purple discoloration of the skin near the puncture site is common. * You may shower only, no bathtub bathing for 5 days. Be careful to avoid slipping as your leg may feel stiff. * If a closure device was used on your femoral artery, please see the attached guide regarding care of the device and your leg. * Leave dressing on FOR 24 hours. CARE OF YOUR WRIST INCISION; * Bruising or purple discoloration of the skin near the puncture site is common. * You may shower. * DO NOT submerge wrist. * Leave dressing on FOR 24 hours. DINESH SHIPMAN MD August 16, 2020 08:44
[2020-08-16] MEDS ORDERED: NS IV 1000 ML 1,000 ML IV SCH (08:45)
[2020-08-16] MEDS ORDERED: PATIENT MAY USE OWN MEDS, ALL PO SCH (08:45)
== END 2020-08-16 13:20 ==
LOC: CATH 08:00 → SDC 09:15 → CATH 13:20
PROVIDERS: ATTEND Internal Medicine Cardiovascular Disease
DX: I25.10 Atherosclerotic heart disease of native coronary artery without angina pectoris (principal); I25.41 Coronary artery aneurysm; I10 Essential (primary) hypertension; I25.2 Old myocardial infarction; F17.210 Nicotine dependence, cigarettes, uncomplicated; Z79.82 Long term (current) use of aspirin; Z79.899 Other long term (current) drug therapy; Z91.09 Other allergy status, other than to drugs and biological substances; Z82.3 Family history of stroke; Z83.3 Family history of diabetes mellitus
CPT/HCPCS: 71045; 80053; 80061; 81000; 85027; 85610; 85730; 87081; 93458; C1894; G0278; 36415

== ENCOUNTER → 2021-01-08 | Outpatient (CLI) | payer SELFPAY ==
[~2021-01-08] MED LIST changes: -HEParin (CATH LAB) 2,000 ML IV ONE; -LIDOCAINE 1% INJ 20 ML 20 ML VIAL ONE; -MIDAZOLAM 5 MG/5 ML (VERSED) VIAL ONE; -NS IV 1000 ML 1,000 ML IV SCH; -NS IV 1000 ML 1,000 ML ONE; -fentaNYL INJ 100 MCG/2 ML AMP ONE
== END ==
LOC: CARD 14:00
PROVIDERS: ATTEND Physician Assistant
DX: I34.0 Nonrheumatic mitral (valve) insufficiency (principal); I10 Essential (primary) hypertension
CPT/HCPCS: 93306

== ENCOUNTER → 2021-08-21 | Outpatient (CLI) | payer OTHER ==
[~2021-08-21] MED LIST changes: -LISI1TAB29 PO; +LISI1TAB44 PO
== END ==
LOC: CARD 11:04
PROVIDERS: ATTEND Internal Medicine Cardiovascular Disease
DX: I34.0 Nonrheumatic mitral (valve) insufficiency (principal); I10 Essential (primary) hypertension
CPT/HCPCS: 93306